=== PATIENT | female | born 1940 | race Caucasian/White ===

== ENCOUNTER → 2016-11-30 | Outpatient (CLI) | payer MEDICARE | END | disposition home or self-care (01) | LOC: NC 17:28 | PROVIDERS: ATTEND Family Medicine | DX: E11.9 Type 2 diabetes mellitus without complications (principal); I11.9 Hypertensive heart disease without heart failure ==

== ENCOUNTER → 2017-02-19 | Outpatient (CLI) | payer MEDICARE | END | disposition home or self-care (01) | LOC: NC 08:30 | PROVIDERS: ATTEND Family Medicine | DX: I11.9 Hypertensive heart disease without heart failure (principal); E11.9 Type 2 diabetes mellitus without complications; I69.354 Hemiplegia and hemiparesis following cerebral infarction affecting left non-dominant side; M15.0 Primary generalized (osteo)arthritis ==

== ENCOUNTER → 2017-02-24 | Outpatient (CLI) | payer MEDICARE | END | disposition home or self-care (01) | LOC: GMAM 16:32 | PROVIDERS: ATTEND Family Medicine | DX: E03.9 Hypothyroidism, unspecified (principal) ==

== ENCOUNTER → 2017-03-10 | Outpatient (CLI) | payer MEDICARE ==
--- NOTE | 2017-03-11 14:38 | MAM ---
EXAM DESCRIPTION: 3D Screening BILATERAL CLINICAL HISTORY: 77 yearsFemaleSCREENING. No complaints. Postmenopausal.. COMPARISON: Digital screening bilateral examination 05/26/2011. No prior reports available. TECHNIQUE: Bilateral CC and MLO projection full-field images, 3-D tomosynthesis digital mammographic technique. Also bilateral synthesized CC/ MLO full-field images. CAD not utilized. FINDINGS: The breast parenchymal density pattern is: Scattered areas of fibroglandular density. No skin thickening or nipple retraction bilateral solitary microcalcifications. Bilateral vascular calcifications. No focal, stellate mass or density, focal asymmetry , and no suspicious microcalcifications bilaterally. Mammograms stable since the prior study May 2011. IMPRESSION: BI-RADS CATEGORY: 2 - BENIGN FINDINGS. FOLLOW UP: Routine digital bilateral screening, one year interval from February 2017. Written communication explaining the findings and follow-up, will be mailed to the patient and referring health care provider. According to the [employer], yearly mammograms are recommended starting at age 40 and continuing as long as a woman is in good health. Any breast change noted on a breast self-exam should be reported promptly to the patient's healthcare provider. Breast MRI is recommended for women with an approximately 20-25% or greater lifetime risk of breast cancer, including women with a strong family history of breast or ovarian cancer and women who have been treated for Hodgkin's disease. A negative mammographic report should not delay tissue diagnosis in patients with significant clinical history or physical findings. Extremely dense breast tissue limits the sensitivity of digital mammography. Electronically signed by: Eze Mcintosh MD 03/11/2017 2:36 PM CDT Workstation: [id number]
== END ==
LOC: MAMMO 13:53
PROVIDERS: ATTEND Family Medicine
DX: Z12.31 Encounter for screening mammogram for malignant neoplasm of breast (principal)

== ENCOUNTER → 2017-06-07 | Outpatient (CLI) | payer MEDICARE | END | disposition home or self-care (01) | LOC: NC 09:30 | PROVIDERS: ATTEND Family Medicine | DX: I11.9 Hypertensive heart disease without heart failure (principal); E11.9 Type 2 diabetes mellitus without complications; E03.9 Hypothyroidism, unspecified ==

== ENCOUNTER → 2017-09-09 | Outpatient (CLI) | payer MEDICARE | END | disposition home or self-care (01) | LOC: NC 08:08 | PROVIDERS: ATTEND Family Medicine | DX: E78.5 Hyperlipidemia, unspecified (principal); E11.9 Type 2 diabetes mellitus without complications; R30.0 Dysuria; I10 Essential (primary) hypertension; Z13.29 Encounter for screening for other suspected endocrine disorder ==

== ENCOUNTER → 2018-01-05 | Outpatient (CLI) | payer MEDICARE ==
--- NOTE | 2018-01-06 09:19 | US ---
EXAM DESCRIPTION: Extremity,Lower [place] Arteries CLINICAL HISTORY: 77 years, Female, PVD COMPARISON: None. FINDINGS: Multiphasic waveforms are noted in the right lower extremity arteries except as detailed below. Color Doppler images show no significant stenotic lesion. Peak systolic velocities in the right lower extremity as follows: Right common femoral artery 99 centimeters/second Proximal right superficial femoral artery 95 centimeters/second Mid right superficial femoral artery 88 centimeters/second Distal right superficial femoral artery 97 centimeters/second Right popliteal artery 56 centimeters/second Right posterior tibial artery 63 centimeters/second, monophasic Right dorsalis pedis artery 41 centimeters/second, monophasic Right peroneal artery 63 centimeters/second Multiphasic waveforms are noted in the left lower extremity arteries except as detailed below. Color Doppler images show no significant stenotic lesion. Peak systolic velocities in the left lower extremity as follows: Left common femoral artery 129 centimeters/second Proximal left superficial femoral artery 145 centimeters/second Mid left superficial femoral artery 137 centimeters/second Distal left superficial femoral artery 112 centimeters/second Left popliteal artery 83 centimeters/second Left posterior tibial artery 94 centimeters/second Left dorsalis pedis artery 65 centimeters/second, monophasic Left peroneal artery 86 centimeters/second IMPRESSION: Monophasic waveforms in the bilateral dorsalis pedis and right posterior tibial arteries consistent with mild peripheral arterial disease. No evidence of focal stenosis or occlusion. Electronically signed by: Marcial Boateng MD 01/06/2018 9:18 AM CDT
== END ==
LOC: US 13:45
PROVIDERS: ATTEND Family Medicine
DX: I73.9 Peripheral vascular disease, unspecified (principal)

== ENCOUNTER → 2018-03-07 | Outpatient (CLI) | payer MEDICARE | LOC: NC 09:26 | PROVIDERS: ATTEND Family Medicine | DX: R30.0 Dysuria (principal); I10 Essential (primary) hypertension; E11.9 Type 2 diabetes mellitus without complications; I69.354 Hemiplegia and hemiparesis following cerebral infarction affecting left non-dominant side; Z79.84 Long term (current) use of oral hypoglycemic drugs ==

== ENCOUNTER → 2018-06-07 | Outpatient (CLI) | payer MEDICARE | LOC: NC 10:19 | PROVIDERS: ATTEND Family Medicine | DX: I10 Essential (primary) hypertension (principal); E11.9 Type 2 diabetes mellitus without complications; M15.0 Primary generalized (osteo)arthritis; E03.9 Hypothyroidism, unspecified; E78.5 Hyperlipidemia, unspecified; Z79.899 Other long term (current) drug therapy ==

== ENCOUNTER → 2018-06-24 | Outpatient (CLI) | payer MEDICARE ==
--- NOTE | 2018-06-24 12:26 | CT ---
Procedure: CT LOW DOSE LUNG SCREENING Exam Date: 06/24/2018. Ordering Provider: LUCIA OROZCO. Clinical Indication: HISTORY OF TOBACCO ABUSE This patient meets eligibility criteria for low-dose CT lung cancer screening. Comparison: CT scan of the abdomen 04/09/2014. Technique: Using a multislice scanner, sequential helical axial imaging was obtained in the thorax, 2.5 mm thickness, 2.5 mm separation, from the level of the thoracic inlet through the lung bases without IV contrast. A low dose protocol was utilized: CTDI: 1.76 mGy. 120. kVp. 45 mA. 2D sagittal and coronal reconstructed images, 6.0 mm thickness, were obtained. This exam was performed according to our departmental dose optimization program which includes use of automated exposure control, adjustment of the mA and/or kV according to patient size and/or use of iterative reconstruction technique. FINDINGS: Lungs and large airways: Scattered blebs in the centrilobular distribution of the upper lobes. Pleural-based bulla lateral right apex. 6 mm groundglass nodule associated with the medial anterior right horizontal fissure, on axial sequence 2, image 50 and 51. Minimal dependent atelectasis in the bilateral posterior lower lobes. No abnormal nodules. No masses or infiltrates.. Pleura: No effusion bilaterally or pneumothorax. Minimal pleural thickening. Mediastinum and pooja: evaluation limited by low dose technique and lack of IV contrast. No large soft tissue masses or lymph nodes. Heart and great vessels: Atherosclerotic calcification of the aortic arch and proximal right innominate artery. Also calcifications in the coronary arteries and the descending thoracic aorta. Chest wall, lower neck, axillae: Evaluation also limited by same factors as described above. Somewhat irregular radiodense lesion in the inferior mid left breast asymmetric compared to the similar region of the right breast. No enlarged axillary lymph nodes or soft tissue masses. Small radiodense thyroid gland bilaterally. Upper abdomen: No significant abnormalities in the bilateral adrenal glands or spleen. 2 radiodense stones in the inferior collecting system of the left kidney 6 and 7 mm diameter. Large radiodense stone in the left renal pelvis measuring 1.4 cm. Hydronephrosis in the upper collecting system. Included right kidney is unremarkable. Layering gravel and a large 2 cm stone in the gallbladder. No free fluid or free air in the peritoneum. Bones: Evaluation limited by low dose MIP technique. Multiple levels of thoracic spondylosis. Question of bilateral glenohumeral joint space narrowing. IMPRESSION: 1. 6 mm groundglass nodule associated with the horizontal fissure at the junction of the right upper lobe and right lower lobe. No other lung or airway findings.. [facility] Best Practice recommendation is one year CT lung screening follow-up: Please see below for Lung RADS category and FOLLOW-UP.* 2. Focal asymmetry in the inferior posterior left breast near the posterior nipple line more dense appearing and more asymmetry compared to previous bilateral screening digital breast tomosynthesis 03/10/2017. Consider follow-up bilateral diagnostic digital breast tomosynthesis unless exam has been performed elsewhere since February 2017. Comparison is recommended. 3. 6mm and 8 mm radiodense stones in the mid and inferior collecting system of the left kidney with a 1.5 cm stone abutting the renal pelvis. Stones are stable compared to the prior abdominal CT scan 04/09/2014, but hydronephrosis has increased in the left upper pole. *Lung RADS category Category 2 - Nodules with a very low likelihood (less than 1%) of becoming a clinically active cancer due to size or lack of growth. Nodules: Solid or part solid nodule(s) less than 6mm, new solid nodule less than 4mm. Ground glass nodule(s) less than 20mm or unchanged or slow growing ground glass nodule 20mm or greater. Cat 3 or 4 nodule unchanged for 3 or more months. Follow-up: Continue annual screening with a Low Dose Chest CT in 12 months for re-evaluation. Lung RADS Modifier S - Clinically Significant or Potentially Clinically Significant Findings (non lung cancer). See above IMPRESSION. Electronically signed by: Eze Mcintosh MD 06/24/2018 12:25 PM CDT
== END ==
LOC: CT 08:42
PROVIDERS: ATTEND Family Medicine
DX: Z87.891 Personal history of nicotine dependence (principal); I50.22 Chronic systolic (congestive) heart failure; I10 Essential (primary) hypertension; E78.2 Mixed hyperlipidemia; R91.1 Solitary pulmonary nodule; N20.0 Calculus of kidney

== ENCOUNTER → 2018-12-06 | Outpatient (CLI) | payer MEDICARE | LOC: NC 10:11 | PROVIDERS: ATTEND Family Medicine | DX: I10 Essential (primary) hypertension (principal); E11.9 Type 2 diabetes mellitus without complications; M15.0 Primary generalized (osteo)arthritis; E03.9 Hypothyroidism, unspecified ==

== ENCOUNTER → 2018-12-07 | Outpatient (CLI) | payer MEDICARE | LOC: NC 11:00 | PROVIDERS: ATTEND Family Medicine | DX: E11.9 Type 2 diabetes mellitus without complications (principal); I10 Essential (primary) hypertension; I69.354 Hemiplegia and hemiparesis following cerebral infarction affecting left non-dominant side; K21.9 Gastro-esophageal reflux disease without esophagitis ==

== ENCOUNTER → 2018-12-16 | Outpatient (CLI) | payer MEDICARE | LOC: GMAM 12:14 | PROVIDERS: ATTEND Family Medicine | DX: R80.9 Proteinuria, unspecified (principal) ==

== ENCOUNTER → 2019-05-01 | Outpatient (CLI) | payer MEDICARE | LOC: NC 10:28 | PROVIDERS: ATTEND Family Medicine | DX: I10 Essential (primary) hypertension (principal); R73.09 Other abnormal glucose; E03.9 Hypothyroidism, unspecified; E78.2 Mixed hyperlipidemia; R80.9 Proteinuria, unspecified ==

== ENCOUNTER → 2019-12-20 | Outpatient (CLI) | payer MEDICARE | LOC: NC 12:32 | PROVIDERS: ATTEND Family Medicine | DX: R30.0 Dysuria (principal) ==

== ENCOUNTER → 2020-04-17 | Outpatient (CLI) | payer MEDICARE | END | disposition home or self-care (01) | LOC: NC 13:01 | PROVIDERS: ATTEND Family Medicine | DX: R30.0 Dysuria (principal) ==

== ENCOUNTER → 2020-05-23 | Outpatient (CLI) | payer MEDICARE | LOC: NC 09:21 | PROVIDERS: ATTEND Family Medicine | DX: I11.0 Hypertensive heart disease with heart failure (principal); I50.9 Heart failure, unspecified; E11.51 Type 2 diabetes mellitus with diabetic peripheral angiopathy without gangrene; E03.9 Hypothyroidism, unspecified; E78.2 Mixed hyperlipidemia; Z86.73 Personal history of transient ischemic attack (TIA), and cerebral infarction without residual deficits ==

== ENCOUNTER → 2020-07-09 | Outpatient (CLI) | payer MEDICARE | LOC: NC 14:50 | PROVIDERS: ATTEND Family Medicine | DX: I11.0 Hypertensive heart disease with heart failure (principal); I50.42 Chronic combined systolic (congestive) and diastolic (congestive) heart failure; E11.51 Type 2 diabetes mellitus with diabetic peripheral angiopathy without gangrene ==